=== PATIENT | male | born 1965 | race American Indian/Alaskan Native ===

== ENCOUNTER 2016-11-05 19:11 | Emergency (ER) | payer OTHER ==
[2016-11-05 19:57] VITALS: BP 150/105
[2016-11-05] MEDS ORDERED: BICILLIN L-A IM ONE (22:04)
--- NOTE | 2016-11-05 22:19 | Emergency Department Report ---
ED Male HPI - General Chief complaint: Urogenital-Male Stated complaint: GENITAL BREAK OUT Time Seen by Provider: 11/05/16 21:47 Source: patient Mode of arrival: Ambulatory Limitations: No Limitations - History of Present Illness Initial comments: 51-year-old male past medical history HIV not currently taking any HIV medicines for approximately 6 months presents with complaint of lesion to penis for 3 weeks. Patient states that approximately 3-1/2 weeks ago he went to urgent care and was treated for genital herpes outbreak. Patient states that the small vesicular lesions improved however he noticed a open sore on his penile shaft. Patient denies any fevers or chills denies any penile discharge denies any dysuria primarily states that he noticed this painless open sore at the top of his penile shaft behind the rim of the glans penis. Denies current sexual activity. Last sexually active 8-9 months ago. Patient will not divulge more information about his sex habits. Does state that the skin on the penis is somewhat itchy MD Complaint: other Onset/Timin -: week(s) Location: penis rash - Related Data Previous Rx's Medication Instructions Recorded Last Taken Type hydrOXYzine HCL [Atarax] 25 mg PO Q6HR PRN #20 tablet 12/16/14 Unknown Rx predniSONE [Deltasone] 20 mg PO TID #12 tab 12/16/14 Unknown Rx Cefixime [Suprax] 400 mg PO BID #28 capsule 04/19/15 Unknown Rx HYDROcodone/APAP 5-325 [[place] 1 each PO Q6HR PRN #14 tablet 04/19/15 Unknown Rx 5/325] Clotrimazole 1% [Lotrimin 1%] 15 gm TP BID #1 tube 11/05/16 Unknown Rx Hydrocortisone 1% [Hydrocortisone 1 applicatio TP TID #1 tube 11/05/16 Unknown Rx 1% CREAM] Allergies Allergy/AdvReac Type Severity Reaction Status Date / Time No Known Allergies Allergy Verified 04/19/15 13:37 ED Review of Systems ROS: Stated complaint: GENITAL BREAK OUT Other details as noted in HPI Constitutional: denies: chills, fever Eyes: denies: eye pain, eye discharge, vision change ENT: denies: ear pain, throat pain Respiratory: denies: cough, shortness of breath, wheezing Cardiovascular: denies: chest pain, palpitations Endocrine: no symptoms reported Gastrointestinal: denies: abdominal pain, nausea, diarrhea Genitourinary: as per HPI. denies: urgency, dysuria Musculoskeletal: denies: back pain, joint swelling, arthralgia Skin: denies: rash, lesions Neurological: denies: headache, weakness, paresthesias Psychiatric: denies: anxiety, depression Hematological/Lymphatic: denies: easy bleeding, easy bruising ED Past Medical Hx - Past Medical History Previous Medical History?: Yes Hx HIV: Yes - Surgical History Past Surgical History?: No - Social History Smoking Status: Never Smoker Substance Use Type: None - Medications Home Medications: Home Medications Medication Instructions Recorded Confirmed Last Taken Type hydrOXYzine HCL [Atarax] 25 mg PO Q6HR PRN #20 tablet 12/16/14 Unknown Rx predniSONE [Deltasone] 20 mg PO TID #12 tab 12/16/14 Unknown Rx Cefixime [Suprax] 400 mg PO BID #28 capsule 04/19/15 Unknown Rx HYDROcodone/APAP 5-325 [[place] 1 each PO Q6HR PRN #14 tablet 04/19/15 Unknown Rx 5/325] Clotrimazole 1% [Lotrimin 1%] 15 gm TP BID #1 tube 11/05/16 Unknown Rx Hydrocortisone 1% [Hydrocortisone 1 applicatio TP TID #1 tube 11/05/16 Unknown Rx 1% CREAM] ED Physical Exam - General Limitations: No Limitations General appearance: alert, in no apparent distress - Head Head exam: Present: atraumatic, normocephalic - Eye Eye exam: Present: normal appearance, PERRL, EOMI - ENT ENT exam: Present: mucous membranes moist - Neck Neck exam: Present: normal inspection - Respiratory Respiratory exam: Present: normal lung sounds bilaterally. Absent: respiratory distress - Cardiovascular Cardiovascular Exam: Present: regular rate, normal rhythm. Absent: systolic murmur, diastolic murmur, rubs, gallop - GI/Abdominal GI/Abdominal exam: Present: soft, normal bowel sounds - Rectal Rectal exam: Present: deferred - exam: Present: other (visible chancre to penile shaft) - Expanded Exam Expanded Male exam: Present: lesions (visible chancre to top of penile shaft behind the glans, some evidence of small excoriations suggestive of balanitis), balanitis image: 1 - Chancre below foreskin here - Extremities Exam Extremities exam: Present: normal inspection - Back Exam Back exam: Present: normal inspection - Neurological Exam Neurological exam: Present: alert, oriented X3 - Psychiatric Psychiatric exam: Present: normal affect, normal mood - Skin Skin exam: Present: warm, dry, intact, normal color. Absent: rash ED Course Vital Signs 11/05/16 19:54 Temperature 98.2 F Pulse Rate 84 Respiratory 18 Rate Blood Pressure 150/105 O2 Sat by Pulse 99 Oximetry ED Medical Decision Making - Medical Decision Making A/P: Penile chancre, balanitis 1-lesion on penis less characteristic of herpes outbreak as it is singular and has the appearance of a chancre not a vesicle. Clinical concern for syphilis as this is a painless penile lesion and patient is immunocompromised is HIV- positive not on anti-retroviral medicine does not know his last CD4 count or last viral load. 2-will treat patient empirically for early stage syphilis with 2.4 million units of penicillin G. We'll also treat patient for balanitis with topical medications 3-referral to primary care and infectious disease 4-I stressed to the patient the importance of following up with primary care to manage his HIV is uncontrolled HIV can lead to opportunistic infections sepsis and . Patient stated he understood Critical care attestation.: If time is entered above; I have spent that time in minutes in the direct care of this critically ill patient, excluding procedure time. ED Disposition Clinical Impression: Syphilitic chancre of penis, Balanitis Disposition: - TO HOME OR SELFCARE Is pt being admited?: No Does the pt Need Aspirin: No Condition: Stable Instructions: Balanitis (ED), Syphilis (ED) Prescriptions: Clotrimazole 1% [Lotrimin 1%] 15 gm TP BID #1 tube Hydrocortisone 1% [Hydrocortisone 1% CREAM] 1 applicatio TP TID #1 tube Referrals: ADDIS GUTIERREZ MD [Staff Physician] - 3-5 Days [facility] [Outside] - 3-5 Days [facility] [Outside] - 3-5 Days [facility] [Outside] - 3-5 Days Forms: Work/School Release Form(ED) Time of Disposition: 22:24
[2016-11-06 12:17] LABS: Rapid Plasma Reagin Reactive (Nonreactive)
[2016-11-06 12:18] LABS: Rapid Plasma Reagin Ab Titer 1:16
== END 2016-11-05 22:55 | disposition home or self-care (01) ==
LOC: ED 19:11
DX: A51.0 Primary genital syphilis (principal); N48.1 Balanitis
CPT/HCPCS: 36415; 86592; 86593; 96372; 99283; J0561; 86780

== ENCOUNTER 2017-10-07 13:58 | Emergency (ER) | payer SELFPAY ==
[2017-10-07] MEDS ORDERED: TYLENOL ONE (14:54)
[2017-10-07] MEDS ORDERED: NACL 0.9% 500 ML 500 ML IV ONE (14:59)
[2017-10-07] MEDS ORDERED: TYLENOL PO ONE (15:00)
[2017-10-07 15:33] LABS: Basophils % (Auto) 0.1 % (0.0-1.8); Hematocrit 41.1 % (35.5-45.6); Hemoglobin 13.1 gm/dl (11.8-15.2); Lymphocytes # (Auto) 3.4 K/mm3 (1.2-5.4); Lymphocytes % (Auto) 29.7 % (13.4-35.0); Mean Corpuscular HGB Conc 32 % (32-34); Monocytes # (Auto) 1.2 K/mm3 (0.0-0.8); Monocytes % (Auto) 10.6 % (0.0-7.3); Platelet Count 204 K/mm3 (140-440); Red Blood Count 6.04 M/mm3 (3.65-5.03); Red Cell Distribution Width 16.6 % (13.2-15.2)
[2017-10-07 15:38] LABS: INR 0.95 (0.87-1.13)
[2017-10-07 15:38] LABS: Mean Corpuscular Hemoglobin 22 pg (28-32); Mean Corpuscular Volume 68 fl (84-94)
[2017-10-07 15:47] LABS: Bilirubin,Urine NEG (Negative); Blood,Urine SM (Negative); Color,Urine Yellow (Yellow)
[2017-10-07 15:55] LABS: Alanine Aminotransferase 15 units/L (7-56); Albumin 3.6 g/dL (3.9-5); BUN/Creatinine Ratio 9; Blood Urea Nitrogen 8 mg/dL (9-20); Calcium 8.7 mg/dL (8.4-10.2); Hemolysis Index 0
--- NOTE | 2017-10-07 15:57 | XRay Report ---
FINAL REPORT EXAM: XR CHEST 1V AP HISTORY: possible Sepsis COMPARISON: None. TECHNIQUE: Single frontal view of the chest FINDINGS: The cardiomediastinal silhouette is normal in appearance. The lungs are clear without focal consolidation. There is no pleural effusion or pneumothorax. There is no acute soft tissue or osseous abnormality. IMPRESSION: No acute cardiopulmonary disease.
[2017-10-07] MEDS ORDERED: TORADOL IV ONE ×2 (16:05→17:19)
--- NOTE | 2017-10-07 16:29 | Emergency Department Report ---
HPI - General Chief Complaint: Fever Time Seen by Provider: 10/07/17 16:04 - HPI HPI: 52-year-old male presents to the emergency department with a complaint of swelling to the face, left ear and now a headache that began going on since last Wednesday, 4 days ago. This started since he came back from [place]. Headache is more recent. He also presents with a fever and the patient admits to feeling feverish with some chills but has not checked his temperature. He denies any past medical history. He took some ibuprofen and some Benadryl for symptoms without much relief. He does not have a primary care physician. ED Past Medical Hx - Past Medical History Previous Medical History?: Yes Hx HIV: Yes - Surgical History Past Surgical History?: No - Social History Smoking Status: Never Smoker Substance Use Type: None - Medications Home Medications: Home Medications Medication Instructions Recorded Confirmed Last Taken Type Clindamycin [Clindamycin CAP] 300 mg PO Q6H #28 capsule 10/07/17 Unknown Rx ED Review of Systems ROS: Stated complaint: EAR SWOLLEN/HEADACHE Other details as noted in HPI Constitutional: chills, fever Eyes: denies: eye pain, eye discharge, vision change ENT: ear pain. denies: throat pain Respiratory: denies: cough, shortness of breath, wheezing Cardiovascular: denies: chest pain, palpitations Gastrointestinal: denies: abdominal pain, nausea, diarrhea Genitourinary: denies: urgency, dysuria Musculoskeletal: denies: back pain, joint swelling, arthralgia Skin: rash, change in color Neurological: denies: headache, weakness, paresthesias Physical Exam - Physical Exam Vital Signs: Vital Signs 10/07/17 10/07/17 14:51 16:17 Temperature 103.0 F H 101 F H Pulse Rate 113 H 89 Respiratory 18 16 Rate Blood Pressure 148/93 Blood Pressure 138/89 [Left] O2 Sat by Pulse 96 97 Oximetry Physical Exam: GENERAL: The patient is well-developed well-nourished. HENT: Normocephalic. Atraumatic. Patient has moist mucous membranes. Oropharynx is clear. Normal-appearing bilateral external ear canals and tympanic membranes. The left external ear however is erythematous and slightly swollen. EYES: Extraocular motions are intact. Pupils equal reactive to light bilaterally. NECK: Supple. Trachea is midline. CHEST/LUNGS: Clear to auscultation. There is no respiratory distress noted. HEART/CARDIOVASCULAR: Regular. There is no tachycardia. There is no murmur. ABDOMEN: Abdomen is soft, nontender. Patient has normal bowel sounds. There is no abdominal distention. SKIN: The left external ear is erythematous and slightly swollen. There is also some swelling to the forehead and superior nasal bridge that is slightly erythematous and swollen concerning for a cellulitis. NEURO: The patient is awake, alert, and oriented. The patient is cooperative. The patient has no focal neurologic deficits. The patient has normal speech. Cranial nerves II through XII grossly intact. MUSCULOSKELETAL: There is no tenderness or deformity. There is no limitation range of motion. There is no evidence of acute injury. ED Course Vital Signs 10/07/17 10/07/17 14:51 16:17 Temperature 103.0 F H 101 F H Pulse Rate 113 H 89 Respiratory 18 16 Rate Blood Pressure 148/93 Blood Pressure 138/89 [Left] O2 Sat by Pulse 96 97 Oximetry - Pulse Oximetry Interpretation Digit-Finger Initial Pulse Oximetry Readin O2 Sat by Pulse Oximetry: 96 Actions Taken: none Additional Comments: Normal ED Medical Decision Making - Lab Data Result diagrams: 10/07/17 15:04 10/07/17 15:04 - Radiology Data Radiology results: report reviewed, image reviewed interpreted by me: Chest x-ray does not show any acute process. There are no pleural effusions, obvious pneumonia and there is no pneumothorax. EXAM: CT HEAD/BRAIN WO CON HISTORY: headache COMPARISON: None. TECHNIQUE: Multiple contiguous axial images were obtained from the skullbase to the vertex without administration of IV contrast. FINDINGS: Brain volume is normal for age. No hemorrhage, mass, mass effect, or midline shift. Ventricles are not enlarged. Normal basal cisterns. No pathologic extra-axial fluid collection. No evidence of acute infarct. No skull fracture. Paranasal sinuses and mastoid air cells are clear. Bilateral orbits are grossly intact. IMPRESSION: No acute intracranial abnormality. Transcribed By: PINA Dictated By: HALLIE PALM MD Electronically Authenticated By: HALLIE PALM MD Signed Date/Time: 10/07/17 6736 EXAM: CT FACIAL BONES W CON HISTORY: facial swelling and redness COMPARISON: None. TECHNIQUE: Multiple contiguous axial images were obtained through the face after administration of IV contrast. Reformatted sagittal and coronal images were available for review. FINDINGS: The bones are intact without fracture or dislocation. There is no nasal septal deviation. The zygomatic arches and orbital rims are preserved. The mandible is normal in morphology. The base of the brain is normal in appearance. There is no abnormal enhancement of the soft tissues. There is no abnormal mass or fluid collection. The vascular structures are normal. IMPRESSION: No facial fracture. Soft tissues are intact. No abnormal mass or fluid collection. Transcribed By: PINA Dictated By: HALLIE PALM MD Electronically Authenticated By: HALLIE PALM MD Signed Date/Time: 10/07/17 4751 - Medical Decision Making Patient presents with a four-day history of some swelling to the forehead and the external left ear. There are no signs of any otitis externa in the canal or otitis media. The area that is swollen and erythematous to the face is more the forehead and does not appear to involve the orbits. That being said, a CT scan of the head and facial bones with IV contrast was done that does not show any signs of orbital cellulitis, periorbital cellulitis or any facial abscesses and was basically a negative examination. The white blood cell count is only up to 11,000. There is no lactic acidosis. A chest x-ray was done that does not show any acute process. There are no other signs of infection seen. He was given some IV fluid, Tylenol, Toradol and vancomycin. He was reevaluated multiple times for multiple hours and is feeling improved. His headache is resolved and his fever has resolved. We discussed monitoring for worsening of the infection and he understands to return if he appears to be worsening, starts to involve the orbits, eyelids, or if he has any intractable fever. He will use Tylenol and ibuprofen intermittently. - Differential Diagnosis cellulitis, allergic reaction, sepsis, dermatitis Critical Care Time: No Critical care attestation.: If time is entered above; I have spent that time in minutes in the direct care of this critically ill patient, excluding procedure time. ED Disposition Clinical Impression: Facial cellulitis Fever Qualifiers: Fever type: unspecified Qualified Code(s): R50.9 - Fever, unspecified Disposition: DC-01 TO HOME OR SELFCARE Is pt being admited?: No Condition: Stable Instructions: Cellulitis (ED), Fever in Adults (ED) Additional Instructions: Please follow up with a primary care physician in the next few days. Take the antibiotics as prescribed. You can use Tylenol every 4 hours and ibuprofen every 6 hours, using weight-based dosing, as needed for fever. Return to the emergency department immediately with any intractable fever, worsening of your cellulitis especially if it starts to get towards the eyelids/eyes, or with any acute distress. Prescriptions: Clindamycin [Clindamycin CAP] 300 mg PO Q6H #28 capsule Referrals: JUANITA SHARIF MD [Staff Physician] - SANTOS KAMARA MD [Staff Physician] - DARIELA MAGAÑA MD [Staff Physician] - DIANNA PRIMARY CAREMD [Primary Care Provider] - DIANNA Time of Disposition: 19:10
--- NOTE | 2017-10-07 16:44 | Cat Scan Report ---
FINAL REPORT EXAM: CT HEAD/BRAIN WO CON HISTORY: headache COMPARISON: None. TECHNIQUE: Multiple contiguous axial images were obtained from the skullbase to the vertex without administration of IV contrast. FINDINGS: Brain volume is normal for age. No hemorrhage, mass, mass effect, or midline shift. Ventricles are not enlarged. Normal basal cisterns. No pathologic extra-axial fluid collection. No evidence of acute infarct. No skull fracture. Paranasal sinuses and mastoid air cells are clear. Bilateral orbits are grossly intact. IMPRESSION: No acute intracranial abnormality.
--- NOTE | 2017-10-07 16:58 | Cat Scan Report ---
FINAL REPORT EXAM: CT FACIAL BONES W CON HISTORY: facial swelling and redness COMPARISON: None. TECHNIQUE: Multiple contiguous axial images were obtained through the face after administration of IV contrast. Reformatted sagittal and coronal images were available for review. FINDINGS: The bones are intact without fracture or dislocation. There is no nasal septal deviation. The zygomatic arches and orbital rims are preserved. The mandible is normal in morphology. The base of the brain is normal in appearance. There is no abnormal enhancement of the soft tissues. There is no abnormal mass or fluid collection. The vascular structures are normal. IMPRESSION: No facial fracture. Soft tissues are intact. No abnormal mass or fluid collection.
[2017-10-07] MEDS ORDERED: VANCOMYCIN/NS 1 GM/250 ML 1 GM/250 ML BAG IV SCH (17:00)
[2017-10-07] MEDS ORDERED: VANCOMYCIN PHARMACY TO DOSE IV SCH (17:00)
[2017-10-07] MEDS ORDERED: VANCOMYCIN 1,250 MG in NACL 0.9% 250ML 250 ML IV SCH (18:00)
[2017-10-07 19:51] VITALS: BP 131/86
== END 2017-10-07 19:40 | disposition home or self-care (01) ==
LOC: ED 13:58
DX: L03.211 Cellulitis of face (principal); H92.02 Otalgia, left ear
CPT/HCPCS: 36415; 70450; 70487; 71045; 80053; 81001; 82140; 82805; 85025; 85610; 87040; 87086; 93005; 93010; 96361; 96365; 96375; 99285; J1885; J3370; J7040; J7050; Q9967

== ENCOUNTER 2018-02-21 12:59 | Emergency (ER) | payer SELFPAY ==
[2018-02-21 13:06] VITALS: BP 153/104
--- NOTE | 2018-02-21 15:17 | Emergency Department Report ---
ED Rash HPI - HPI Chief Complaint: Skin Rash Stated Complaint: BUMPS ON FACE AND HEAD Time Seen by Provider: 02/21/18 15:08 Duration: 2 weeks Location: Head, Neck, Other (face) Suspected Cause: Unknown Rash Symptoms: No Itching, No Facial Swelling, No Tongue/Oral Swelling, No Breathing Difficulties, No Choking Sensation, No Wheezing/Dyspnea, No Peeling, No Fever Severity: mild Other History: Healthy male with rash along gonzalez and hairline ED Review of Systems ROS: Stated complaint: BUMPS ON FACE AND HEAD Other details as noted in HPI Constitutional: denies: fever, malaise Skin: rash, lesions Neurological: denies: headache, weakness ED Past Medical Hx - Past Medical History Hx HIV: Yes - Surgical History Past Surgical History?: No - Social History Smoking Status: Never Smoker Substance Use Type: None - Medications Home Medications: Home Medications Medication Instructions Recorded Confirmed Last Taken Type Clindamycin [Clindamycin CAP] 300 mg PO Q6H #28 capsule 10/07/17 Unknown Rx Neomycn/Bacitrc/Polymyx/Pramox 30 gm TP BID 10 Days #1 oint...g. 02/21/18 Unknown Rx [Triple Antibiotic Plus Ointmnt] Sulfamethoxazole/Trimethoprim 1 each PO BID 10 Days #20 tablet 02/21/18 Unknown Rx [Bactrim DS TAB] Rash Exam - Exam General: Vital signs noted. No distress. Alert and acting appropriately. HEENT: No Periorbital Edema, No Conjuctival Injection, No Chemosis, No Perioral Edema, No Tongue Edema, No Uvular Edema, No Compromised Airway, No Drooling Lungs: No Labored Respirations, No Retractions, No Use of Accessory Muscles Skin: No Other (pustules along gonzalez anterior hairline and posterior hairline) ED Course Vital Signs 02/21/18 13:05 Temperature 99.5 F Pulse Rate 88 Respiratory 16 Rate Blood Pressure 153/104 O2 Sat by Pulse 99 Oximetry ED Medical Decision Making - Medical Decision Making folliculitis: rx: bactrim, triple antibiotic ointment Critical care attestation.: If time is entered above; I have spent that time in minutes in the direct care of this critically ill patient, excluding procedure time. ED Disposition Clinical Impression: Folliculitis Disposition: TO HOME OR SELFCARE Is pt being admited?: No Does the pt Need Aspirin: No Condition: Stable Instructions: Folliculitis (ED) Prescriptions: Neomycn/Bacitrc/Polymyx/Pramox [Triple Antibiotic Plus Ointmnt] 30 gm TP BID 10 Days #1 oint...g. Sulfamethoxazole/Trimethoprim [Bactrim DS TAB] 1 each PO BID 10 Days #20 tablet
== END 2018-02-21 15:19 | disposition home or self-care (01) ==
LOC: ED 12:59
DX: L73.9 Follicular disorder, unspecified (principal)
CPT/HCPCS: 99281